=== PATIENT | female | born 1990 | race Caucasian/White ===

== ENCOUNTER → 2024-01-13 | Outpatient (CLI) | payer OTHER ==
[~2024-01-13] MED LIST: Iohexol 300 - 10 ML VIAL ONE
== END ==
LOC: MHCPAIN 10:46
DX: M46.1 Sacroiliitis, not elsewhere classified (principal); M54.50 Low back pain, unspecified; M53.3 Sacrococcygeal disorders, not elsewhere classified
CPT/HCPCS: G0260; J0665; J1010; Q9967

== ENCOUNTER → 2024-02-02 | Outpatient (CLI) | payer OTHER | LOC: MHCPAIN 09:03 | DX: M53.3 Sacrococcygeal disorders, not elsewhere classified (principal); M54.50 Low back pain, unspecified; M46.1 Sacroiliitis, not elsewhere classified | CPT/HCPCS: G0463 ==